=== PATIENT | male | born 1975 | race Caucasian/White ===

== ENCOUNTER 2019-02-14 18:51 | Emergency (ER) | payer MEDICAID, OTHER ==
[~2019-02-14] VITALS: Ht 185.4 cm; Wt 127.0 kg
[2019-02-14 19:45] LABS: Urine WBC None Seen /hpf (0 - 3)
[2019-02-14] MEDS ORDERED: ALBUTEROL SULF 2.5 MG/0.5ML(0.5%) NEB SOLN NEB ONE (19:45)
[2019-02-14] MEDS ORDERED: ONDANSETRON HCL 4 MG/2 ML VIAL IV ONE (19:45)
[2019-02-14] MEDS ORDERED: IPRATROPIUM BROM 0.5 MG/2.5ML INH SOL NEB ONE (19:45)
[2019-02-14] MEDS ORDERED: MORPHINE SULFATE 4 MG/ML SYR/VIAL IV ONE (19:45)
[2019-02-14] MEDS ORDERED: methylPREDNISolone SOD SUCC 125 MG/2 ML VL IV ONE (19:45)
[2019-02-14] MEDS ORDERED: SODIUM CHLORIDE 0.9% 1,000 ML IV ONE (19:45)
[2019-02-14 20:11] LABS: Urine Bacteria NONE SEEN /hpf (None Seen); Urine Blood Negative /uL (Negative); Urine Specific Gravity 1.003 (1.001-1.035)
[2019-02-14 21:03] LABS: Basophils # (auto) 0.1 uL; Eosinophils # (auto) 0 uL; Eosinophils % (auto) 0.7 % (0.0-7.0); Lymphocytes # (auto) 1.8 uL; Monocytes # (auto) 0.5 uL; Neutrophils # (auto) 3.8 uL; Neutrophils % (auto) 61.4 % (37.0-80.0); White Blood Cell 6.2 10^3/uL (4.4-10.8)
[2019-02-14 21:05] LABS: Hematocrit 46.5 % (41.0-53.0); Hemoglobin 16.2 g/dL (13.5-17.5); Lymphocytes % (auto) 29.5 % (10.0-50.0); Mean Corpuscular Hemoglobin 36.3 pg (28.0-32.0); Mean Corpuscular Hgb Conc. 34.8 g/dL (32.0-36.0); Mean Corpuscular Volume 104.1 fL (80.0-100.0); Monocytes % (auto) 7.4 % (0.0-12.0); Nucleated Red Blood Cells % 0.2 %; Platelet Count (auto) 220 10^3/uL (140-450); Red Blood Cells 4.47 10^6/uL (4.5-5.90); Red Cell Distribution Width 13.5 % (11.8-14.3)
[2019-02-14 21:19] LABS: Chloride 106 mmol/L (98-107); Potassium 3.7 mmol/L (3.5-5.1); Sodium 141 mmol/L (136-145)
[2019-02-14 21:21] LABS: INR 1.1 (0.9-1.15); Partial Thromboplastin Time 30.9 sec (23.78-33.04); Prothrombin Time 11.7 sec (9.27-12.13)
[2019-02-14 21:22] LABS: Albumin 3.9 g/dL (3.4-5.0); Anion Gap 12 (5-15); Blood Urea Nitrogen 6 mg/dL (7-18); Carbon Dioxide 23 mmol/L (21-32); Glucose 110 mg/dL (74-106); Magnesium 2.3 mg/dL (1.6-2.6)
[2019-02-14 21:25] LABS: Alanine Aminotransferase 45 U/L (16-61); Aspartate Aminotransferase 61 U/L (15-37); GFR African American 167 mL/min; GFR Non-African American 138 mL/min
[2019-02-14 21:28] LABS: Alkaline Phosphatase 98 U/L (45-117); Bilirubin, Total 0.4 mg/dL (0.2-1.0); Total Protein 7.9 g/dL (6.4-8.2)
[2019-02-14 22:30] VITALS: BP 127/81
== END 2019-02-14 22:33 | disposition home or self-care (01) ==
LOC: EDBD 18:51 → ER 18:51
DX: J45.901 Unspecified asthma with (acute) exacerbation (principal); F10.20 Alcohol dependence, uncomplicated; F17.210 Nicotine dependence, cigarettes, uncomplicated; Y90.9 Presence of alcohol in blood, level not specified
CPT/HCPCS: 36415; 71045; 80053; 81001; 83735; 84484; 85025; 85379; 85610; 85730; 94640; 96374; 96375; 99284; J2270; J2405; J2930; J7030; J7611; J7644

== ENCOUNTER → 2019-08-17 | Emergency (ER) | payer MEDICAID, OTHER ==
[~2019-08-17] VITALS: Ht 182.9 cm; Wt 91.6 kg
[2019-08-17 16:15] VITALS: BP 133/93
[2019-08-17 17:56] LABS: INR 1.03 (0.9-1.15); Partial Thromboplastin Time 28.2 sec (23.64-32.05)
[2019-08-17 17:59] LABS: Albumin 3.7 g/dL (3.4-5.0); Calcium 8.3 mg/dL (8.5-10.1); Potassium 3.7 mmol/L (3.5-5.1)
[2019-08-17 18:03] LABS: BUN/Creatinine Ratio 9.5; Bilirubin, Total 0.4 mg/dL (0.2-1.0); Total Protein 7.5 g/dL (6.4-8.2)
[2019-08-17 18:20] LABS: Basophils # (auto) 0 uL; Eosinophils # (auto) 0 uL
[2019-08-17 18:22] LABS: Basophils % (auto) 0.5 % (0.0-2.0); Eosinophils % (auto) 0.6 % (0.0-7.0); Hematocrit 50.3 % (41.0-53.0); Lymphocytes # (auto) 1.8 uL; Mean Corpuscular Hemoglobin 34.3 pg (28.0-32.0); Mean Corpuscular Hgb Conc. 33.7 g/dL (32.0-36.0); Mean Corpuscular Volume 101.7 fL (80.0-100.0); Monocytes # (auto) 0.7 uL; Monocytes % (auto) 10.6 % (0.0-12.0); Neutrophils # (auto) 4.3 uL; Neutrophils % (auto) 62.3 % (37.0-80.0); Nucleated Red Blood Cells % 0.2 %; Platelet Count (auto) 203 10^3/uL (140-450); Red Blood Cells 4.95 10^6/uL (4.5-5.90); Red Cell Distribution Width 13.9 % (11.8-14.3); White Blood Cell 6.8 10^3/uL (4.4-10.8)
== END | disposition left against medical advice (07) ==
LOC: ER 15:51
DX: R10.11 Right upper quadrant pain (principal); R11.10 Vomiting, unspecified; Z53.21 Procedure and treatment not carried out due to patient leaving prior to being seen by health care provider
CPT/HCPCS: 36415; 80053; 82150; 83690; 85025; 85610; 85730

== ENCOUNTER 2019-10-07 08:50 | Inpatient (IN) | payer MEDICAID ==
[~2019-10-07] VITALS: Ht 182.9 cm; Wt 94.3 kg
[2019-10-07 09:35] LABS: Hematocrit 35.5 % (41.0-53.0); Hemoglobin 12.5 g/dL (13.5-17.5); Mean Corpuscular Hemoglobin 36.6 pg (28.0-32.0); Platelet Count (auto) 156 10^3/uL (140-450); Red Blood Cells 3.42 10^6/uL (4.5-5.90)
[2019-10-07 09:36] LABS: Mean Corpuscular Hgb Conc. 35.2 g/dL (32.0-36.0); Red Cell Distribution Width 18.3 % (11.8-14.3); White Blood Cell 7.3 10^3/uL (4.4-10.8)
[2019-10-07 09:42] LABS: Basophils % (manual) 0 (0.0-2.0); Blast Cells 0; Eosinophils % (manual) 0 (0-7); Metamyelocytes % 0; Myelocytes % 0; Promyelocytes % 0; Reactive Lymphocytes 0
[2019-10-07 09:51] LABS: Albumin 2.6 g/dL (3.4-5.0); Anion Gap 7 (5-15); Blood Urea Nitrogen 10 mg/dL (7-18); Calcium 7.3 mg/dL (8.5-10.1); Carbon Dioxide 25 mmol/L (21-32); Chloride 104 mmol/L (98-107); Glucose 91 mg/dL (74-106); Potassium 3.9 mmol/L (3.5-5.1); Sodium 136 mmol/L (136-145)
[2019-10-07 09:57] LABS: Alanine Aminotransferase 120 U/L (16-61); Alkaline Phosphatase 370 U/L (45-117); Aspartate Aminotransferase 336 U/L (15-37); BUN/Creatinine Ratio 10.3; Bilirubin, Total 4.5 mg/dL (0.2-1.0); GFR African American 109 mL/min; GFR Non-African American 90 mL/min; Total Protein 6.7 g/dL (6.4-8.2)
[2019-10-07] MEDS ORDERED: ONDANSETRON HCL 4 MG/2 ML VIAL ONE (10:01)
[2019-10-07] MEDS ORDERED: ONDANSETRON HCL 4 MG/2 ML VIAL IV ONE (10:15)
[2019-10-07] MEDS ORDERED: chlordiazePOXIDE HCL 5 MG CAP PO ONE (10:45)
[2019-10-07] MEDS ORDERED: PANTOPRAZOLE 40 MG/10 ML VIAL INJ IV ONE (11:30)
[2019-10-07] MEDS ORDERED: THIAMINE 100mg/ml INJ (200mg/2ml VIAL) IV ONE (11:30)
[2019-10-07] MEDS ORDERED: cefTRIAXone 1GM/50ML D5W 50 ML IV ONE (11:30)
[2019-10-07] MEDS ORDERED: NITROGLYCERIN 0.4 MG SL TAB SL PRN (11:30)
[2019-10-07] MEDS ORDERED: chlordiazePOXIDE HCL 25 MG CAP PO PRN (11:30)
[2019-10-07] MEDS ORDERED: ALBUTEROL SULF 2.5 MG/0.5ML(0.5%) NEB SOLN NEB PRN ×2 (11:30→12:30)
[2019-10-07] MEDS ORDERED: MORPHINE SULF INJ 2 MG/ML SYRINGE 1ML IV PRN (11:30)
[2019-10-07] MEDS ORDERED: LORazepam 2MG/ML-1ML VIAL IV PRN (11:30)
[2019-10-07] MEDS ORDERED: MORPHINE SULFATE 4 MG/ML SYR/VIAL IV PRN (11:30)
[2019-10-07] MEDS ORDERED: methylPREDNISolone SOD SUCC 125 MG/2 ML VL ONE (11:43)
[2019-10-07 11:44] LABS: Amylase 55 U/L (25-115); Lipase 68 U/L (73-393)
[2019-10-07] MEDS ORDERED: IPRATROPIUM BROM 0.5 MG/2.5ML INH SOL NEB ONE (11:45)
[2019-10-07] MEDS ORDERED: methylPREDNISolone SOD SUCC 125 MG/2 ML VL IV ONE (11:45)
[2019-10-07] MEDS ORDERED: ALBUTEROL SULF 2.5 MG/0.5ML(0.5%) NEB SOLN NEB ONE (11:45)
[2019-10-07 11:58] LABS: Band Neutrophils % (manual) 1; Lymphocytes % (manual) 19 (10.0-50.0); Monocytes % (manual) 5 (0-12)
[2019-10-07] MEDS: chlordiazePOXIDE HCL 25 MG CAP PO SCH ×2 (12:00→17:39)
--- NOTE | 2019-10-07 12:18 | NUR ---
RECEIVED REPORT FROM ELIER NEWMAN IN ER
[2019-10-07] MEDS ORDERED: LACTULOSE 20Gm/30ML SOLN PO PRN (12:30)
[2019-10-07] MEDS: methylPREDNISolone SOD SUCC 40 MG/ML VL IV SCH (12:30)
[2019-10-07 12:38] LABS: Urine WBC None Seen /hpf (0 - 3)
--- NOTE | 2019-10-07 12:38 | NUR ---
Telemetry admit from [facility] admitted to Telemetry unit after SBAR received. Patient oriented to Cecy Mcnally, primary RN, unit, room, bed, and unit policies regarding patient care and visiting hours. Patient now on continuous telemetry monitoring, tele box # 2 and telemetry reading on arrival to unit is SINUS RHYTHM AT 74BPM. Patient placed on bedside oxygen, weighed by bedscale and encouraged to call if they need something. All questions and concerns addressed, patient verbalized understanding. Note: PT IS AWAKE AND ALERT, AMBULATORY, NOTED SCABS ON PT'S ARMS, NECK AND EAR, NO COMPLAINTS OF PAIN AT THIS TIME, WILL CONTINUE TO MONITOR.
[2019-10-07 12:51] LABS: Urine Bacteria NONE SEEN /hpf (None Seen); Urine Blood Negative /uL (Negative); Urine Specific Gravity 1.022 (1.001-1.035)
[2019-10-07 12:59] LABS: INR 1.44 (0.9-1.15)
[2019-10-07 13:00] VITALS: BP 102/64
--- NOTE | 2019-10-07 13:08 | NUR ---
pt seen by Dr. Dodge pt made aware he will be scheduled for EGD tomorrow, pt verbalized understanding.
--- NOTE | 2019-10-07 13:10 | NUR ---
PT SIGNED AMA TO GO OUTSIDE TO SMOKE, PT EDUCATED ON THE RISK OF GOING OUTSIDE TO SMOKE .
[2019-10-07 13:49] VITALS: BP 101/71
[2019-10-07] MEDS: metroNIDAZOLE 500MG/100ML 100 ML IV SCH ×2 (14:05→21:11)
[2019-10-07] MEDS: MORPHINE SULFATE 4 MG/ML SYR/VIAL IV PRN ×2 (16:32→21:11)
[2019-10-07 17:00] VITALS: BP 124/76
[2019-10-07 17:36] LABS: Hematocrit 32.1 % (41.0-53.0); Hemoglobin 11.1 g/dL (13.5-17.5)
[2019-10-07] MEDS: IPRATROPIUM BROM 0.5 MG/2.5ML INH SOL NEB SCH (18:29)
[2019-10-07] MEDS: ALBUTEROL SULF 2.5 MG/0.5ML(0.5%) NEB SOLN NEB SCH (18:29)
--- NOTE | 2019-10-07 19:55 | NUR ---
Ultrasound at Bedside
--- NOTE | 2019-10-07 20:05 | NUR ---
Opening Shift Note Assumed care of patient, awake and alert, oriented x 4, follows direction, clear speech. Patient is on room air with even and unlabored respirations, no S/S of distress or SOB. Patient ambulates with steady gait and turns independently in bed. PIV left hand 20g intact and patent. Bed low locked position with side rails up x 2 and call light within reach. Instructed on POC for NPO after midnight, procedure tomorrow, patient verbalized understanding. Instructed patient to call for assist PRN, will continue to monitor for changes Q1hr and PRN.
[2019-10-07] MEDS: PANTOPRAZOLE 40 MG TAB PO SCH (21:11)
[2019-10-07] MEDS: PROMETHAZINE HCL 25 MG/ML 1ML IV PRN (21:12)
[2019-10-07 22:27] VITALS: BP 107/67
[2019-10-08] MEDS: chlordiazePOXIDE HCL 25 MG CAP PO SCH ×4 (00:03→18:10)
[2019-10-08] MEDS: methylPREDNISolone SOD SUCC 40 MG/ML VL IV SCH ×2 (00:03→12:03)
--- NOTE | 2019-10-08 00:14 | NUR ---
PT REFUSED MED NEB TX AT THIS TIME. PT DENIES ANY RESPIRATORY DISTRESS. SPO2 98% ON RA, HR 65. NO SHORTNESS OF BREATH NOTED. PT AWARE TO HAVE RT PAGED IF NEEDED. WILL CONTINUE WITH NEXT SCHEDULED TX.
[2019-10-08 00:55] LABS: Hemoglobin 10.3 g/dL (13.5-17.5)
[2019-10-08 05:18] VITALS: BP 122/89
[2019-10-08] MEDS: metroNIDAZOLE 500MG/100ML 100 ML IV SCH (05:24)
[2019-10-08] MEDS: ALBUTEROL SULF 2.5 MG/0.5ML(0.5%) NEB SOLN NEB SCH ×5 (05:54→23:43)
[2019-10-08] MEDS: IPRATROPIUM BROM 0.5 MG/2.5ML INH SOL NEB SCH ×5 (05:54→23:43)
[2019-10-08 06:49] LABS: Hematocrit 31.3 % (41.0-53.0); Hemoglobin 10.9 g/dL (13.5-17.5); Platelet Count (auto) 117 10^3/uL (140-450); Red Blood Cells 2.99 10^6/uL (4.5-5.90); Red Cell Distribution Width 18.9 % (11.8-14.3)
[2019-10-08 06:51] LABS: Mean Corpuscular Hemoglobin 36.5 pg (28.0-32.0); Mean Corpuscular Hgb Conc. 34.9 g/dL (32.0-36.0); Mean Corpuscular Volume 104.7 fL (80.0-100.0); White Blood Cell 7.4 10^3/uL (4.4-10.8)
[2019-10-08 06:58] LABS: Basophils % (manual) 0 (0.0-2.0); Blast Cells 0; Eosinophils % (manual) 0 (0-7); Metamyelocytes % 0; Myelocytes % 0; Promyelocytes % 0; Reactive Lymphocytes 0
[2019-10-08 07:01] LABS: Albumin 2.3 g/dL (3.4-5.0); Calcium 7.7 mg/dL (8.5-10.1); Potassium 4.2 mmol/L (3.5-5.1)
[2019-10-08 07:04] LABS: BUN/Creatinine Ratio 9.1; Total Protein 6.1 g/dL (6.4-8.2)
[2019-10-08 07:52] LABS: Band Neutrophils % (manual) 3; Lymphocytes % (manual) 7 (10.0-50.0); Monocytes % (manual) 3 (0-12)
[2019-10-08 08:00] VITALS: BP 117/74
[2019-10-08] MEDS ORDERED: LIDOCAINE VISCOUS 2% 15ML UD ONE (08:12)
[2019-10-08] MEDS ORDERED: SODIUM CHLORIDE LOCK 10 ML ONE (08:12)
[2019-10-08] MEDS ORDERED: diphenhdrAMINE HCL 50 MG/1 ML VL ONE (08:13)
[2019-10-08] MEDS: PANTOPRAZOLE 40 MG TAB PO SCH ×2 (08:56→21:38)
[2019-10-08 09:00] VITALS: BP 117/74
[2019-10-08] MEDS ORDERED: cefTRIAXone 1GM/50ML D5W 50 ML IV SCH (09:00)
[2019-10-08] MEDS: MORPHINE SULFATE 4 MG/ML SYR/VIAL IV PRN ×2 (09:08→20:23)
[2019-10-08] MEDS ORDERED: THIAMINE 100mg/ml INJ (200mg/2ml VIAL) IV SCH (10:00)
[2019-10-08 13:00] VITALS: BP 100/62
--- NOTE | 2019-10-08 13:20 | NUR ---
PT SEEN BY DR. MCCANN PER DR. MCCANN IF EGD RESULT IS NEGATIVE PT CAN GO HOME LATER TODAY.
--- NOTE | 2019-10-08 13:25 | NUR ---
PT TRANSPORTED TO PRE-OP FOR EGD, PT IS AWAKE AND ALERT, PRE-OP CHECKLIST COMPLETED, CONSENTS SIGNED, IV ON LEFT HAND PATENT AND FLUSHING.
[2019-10-08] MEDS: fentaNYL CITRATE 100 MCG/2 ML VL ONE ×2 (13:42→13:46)
[2019-10-08] MEDS: MIDAZOLAM HCL 5 MG/ML-1ML VIAL ONE ×2 (13:42→13:46)
--- NOTE | 2019-10-08 14:29 | NUR ---
received pt from PACU via bed, pt is awake and alert, no signs of distress at this time, will continue to monitor.
--- NOTE | 2019-10-08 14:32 | NUR ---
DR. MCCANN MADE AWARE PT IS BACK IN ROOM FROM EGD.
[2019-10-08] MEDS ORDERED: FOLIC ACID 1 MG, MULTIPLE VITAMIN 10 ML, MAGNESIUM SULF SDV 50% 8 MEQ, THIAMINE INJ 100... INJ ONE ×5 (15:00)
[2019-10-08] MEDS: SOD CHL 0.45% 1,000 ML IV SCH ×2 (16:22→23:00)
[2019-10-08 17:00] VITALS: BP 125/75
--- NOTE | 2019-10-08 18:37 | NUR ---
RT NOTE PT REFUSED TX PT SITTING UP IN BED EATING NO RESP DISTRESS NOTED.
--- NOTE | 2019-10-08 19:30 | NUR ---
Opening Shift Note Assumed care of patient, awake and alert. No S/S of distress/SOB or pain. Instructed on POC and to call for assist PRN, will continue to monitor for changes Q1hr and PRN.
[2019-10-08] MEDS: PROMETHAZINE HCL 25 MG/ML 1ML IV PRN (20:20)
[2019-10-08 23:17] VITALS: BP 120/74
[2019-10-09] MEDS: chlordiazePOXIDE HCL 25 MG CAP PO SCH ×3 (00:16→10:36)
[2019-10-09] MEDS: methylPREDNISolone SOD SUCC 40 MG/ML VL IV SCH (00:16)
[2019-10-09 05:13] VITALS: BP 126/83
[2019-10-09] MEDS: PROMETHAZINE HCL 25 MG/ML 1ML IV PRN ×2 (05:30→11:56)
[2019-10-09] MEDS: MORPHINE SULFATE 4 MG/ML SYR/VIAL IV PRN ×2 (05:30→14:18)
[2019-10-09 05:41] LABS: Hemoglobin 11.7 g/dL (13.5-17.5); Mean Corpuscular Volume 105.4 fL (80.0-100.0)
[2019-10-09 05:47] LABS: Hematocrit 33.4 % (41.0-53.0); Mean Corpuscular Hemoglobin 36.9 pg (28.0-32.0); Platelet Count (auto) 126 10^3/uL (140-450); Red Blood Cells 3.16 10^6/uL (4.5-5.90); White Blood Cell 11.9 10^3/uL (4.4-10.8)
[2019-10-09 05:58] LABS: Basophils % (manual) 0 (0.0-2.0); Blast Cells 0; Eosinophils % (manual) 0 (0-7); Metamyelocytes % 0; Monocytes % (manual) 0 (0-12); Myelocytes % 0; Promyelocytes % 0; Reactive Lymphocytes 0
[2019-10-09] MEDS: IPRATROPIUM BROM 0.5 MG/2.5ML INH SOL NEB SCH ×2 (06:00→11:17)
[2019-10-09] MEDS: ALBUTEROL SULF 2.5 MG/0.5ML(0.5%) NEB SOLN NEB SCH ×2 (06:00→11:17)
[2019-10-09 06:06] LABS: Potassium 4.1 mmol/L (3.5-5.1)
[2019-10-09 06:14] LABS: Albumin 2.4 g/dL (3.4-5.0); BUN/Creatinine Ratio 7.4; Bilirubin, Total 4.3 mg/dL (0.2-1.0); Calcium 8.3 mg/dL (8.5-10.1); Magnesium 2.4 mg/dL (1.6-2.6); Total Protein 6.4 g/dL (6.4-8.2)
--- NOTE | 2019-10-09 06:24 | NUR ---
RT NOTE: WENT TO PTS ROOM TO ADMINISTER BREATHING TX, PT STATED THAT HE WAS DOING FINE AND DID NOT WANT A TX AT THIS TIME. HR 93, RR 16, SPO2 97% ON RA. PT AWARE TO CALL IF HAVING ANY SOB. WILL CONTINUE TO MONITOR PT.
[2019-10-09] MEDS: SOD CHL 0.45% 1,000 ML IV SCH (06:39)
[2019-10-09 06:56] LABS: Band Neutrophils % (manual) 5; Lymphocytes % (manual) 3 (10.0-50.0)
--- NOTE | 2019-10-09 07:45 | NUR ---
ASSUMED CARE OF PT SITTING UP RIGHT IN BED. DENIES ANY DISCOMFORT. LUNG SOUNDS CLEAR ACCEPT RT LOWER LOBE WHEEZING WHICH IMPROVED SOME AFTER INSTRUCTED FORCEFUL COUGH BUT STILL PRESENT. RE-TAPED PATENT BENIGN IV SITE.
[2019-10-09 09:00] VITALS: BP 115/71
[2019-10-09] MEDS: PANTOPRAZOLE 40 MG TAB PO SCH (10:36)
--- NOTE | 2019-10-09 10:47 | NUR ---
PT RESTING IN BED ACCOMPANIED BY . C/O FREQUENT HAND AND LEG CRAMPING. APPEARS JITTERY. TALKED ABOUT LIFESTYLE CHANGES. TEACHING ABOUT WHAT JAUNDICE IS AND WHAT FUNCTIONS THE LIVER DOES. EXPLAINED HOW MESSAGING ARCHITECT IS EFFECTED BY ETOH USE. EXPLAINED MEDICATIONS INCLUDING LITHIUM. C/O NAUSEA. REQUESTS MEDICATION FOR.
--- NOTE | 2019-10-09 11:17 | NUR ---
RT NOTE: WENT TO PTS ROOM TO ADMINISTER BREATHING TX, PT STATED THAT HE WAS DOING FINE AND DID NOT WANT A TX AT THIS TIME. HR 117, RR 16, SPO2 98% ON RA. PT AWARE TO CALL IF HAVING ANY SOB. WILL CONTINUE TO MONITOR PT.
[2019-10-09] MEDS ORDERED: FOLIC ACID 1 MG, MULTIPLE VITAMIN 10 ML, MAGNESIUM SULF SDV 50% 8 MEQ, THIAMINE INJ 100... INJ SCH ×5 (12:00)
[2019-10-09 13:00] VITALS: BP 111/72
[2019-10-09 13:56] VITALS: BP 115/71
--- NOTE | 2019-10-09 14:33 | NUR ---
MEDICATED FOR PAIN TO LOWER ABDOMINAL AREA. DC INSTRUCTIONS PREPARED AND REVIEWED. REMAINS AT BEDSIDE PRESENTS SUPPORTIVE. PT RESPONDS POSITIVELY AND SHOWS POSITIVE FAMILY DYNAMICS. IV DC'D CANNULA INTACT. TELE MONITOR REMOVED AND SENT TO ICU. ID BAND REMOVED. PREPARED FOR DC HOME.
== END 2019-10-09 15:13 | disposition home or self-care (01) | DRG 241 ==
LOC: ER 08:56 → TELE 08:57 → TELE-EAST 13:10
PROVIDERS: ADMIT Internal Medicine; ATTEND Internal Medicine
PROC: 0DB68ZX Excision of Stomach, Via Natural or Artificial Opening Endoscopic, Diagnostic (ICD-10-PCS; principal; 2019-10-08 13:38)
DX: K29.70 Gastritis, unspecified, without bleeding (principal); E44.0 Moderate protein-calorie malnutrition; K70.30 Alcoholic cirrhosis of liver without ascites; K70.10 Alcoholic hepatitis without ascites; J44.1 Chronic obstructive pulmonary disease with (acute) exacerbation; R16.0 Hepatomegaly, not elsewhere classified; K29.80 Duodenitis without bleeding; K76.0 Fatty (change of) liver, not elsewhere classified; F17.210 Nicotine dependence, cigarettes, uncomplicated; E78.5 Hyperlipidemia, unspecified; F10.239 Alcohol dependence with withdrawal, unspecified; J44.9 Chronic obstructive pulmonary disease, unspecified; Z71.41 Alcohol abuse counseling and surveillance of alcoholic
CPT/HCPCS: 36415; 71046; 74176; 76705; 80053; 81001; 82105; 82150; 82270; 82378; 83036; 83690; 83735; 84484; 85007; 85014; 85018; 85027; 85045; 85610; 85652; 87070; 87077; 87186; 87205; 93005; 94640; 96365; 96375; C9113; G0378; J0696; J2250; J2405; J3490

== ENCOUNTER 2022-07-21 05:44 | Emergency (ER) | payer MEDICAID ==
[~2022-07-21] VITALS: Ht 188 cm; Wt 122.7 kg
[~2022-07-21 05:44] MED LIST: FOLI1TAB6 PO; GAB100C PO; MECL25TA18 PO; PANT40T PO; THIA100T10 PO
[2022-07-21] MEDS ORDERED: MORPHINE SULFATE INJ 2 MG/ml SYRG IV ONE (06:45)
[2022-07-21] MEDS ORDERED: ONDANSETRON HCL 4 MG/2 ML VIAL IV ONE (06:45)
[2022-07-21] MEDS ORDERED: THIAMINE 100mg/ml INJ (200mg/2ml VIAL) IV ONE (07:00)
[2022-07-21] MEDS ORDERED: SODIUM CHLORIDE 0.9% 1,000 ML IV ONE ×2 (07:00)
[2022-07-21 07:58] LABS: Basophils # (auto) 0 10 ^3/uL (0-0.2); Basophils % (auto) 0.5 % (0.0-2.0); Eosinophils # (auto) 0 10 ^3/uL (0-0.8); Eosinophils % (auto) 0.4 % (0.0-7.0); Hematocrit 47.5 % (41.0-53.0); Hemoglobin 16.3 g/dL (13.5-17.5); Lymphocytes # (auto) 0.7 10 ^3/uL (0.4-5.4); Lymphocytes % (auto) 10.5 % (10.0-50.0); Mean Corpuscular Hemoglobin 33.9 pg (28.0-32.0); Mean Corpuscular Hgb Conc. 34.3 g/dL (32.0-36.0); Mean Corpuscular Volume 98.9 fL (80.0-100.0); Monocytes # (auto) 0.5 10 ^3/uL (0-1.3); Monocytes % (auto) 8.3 % (0.0-12.0); Neutrophils # (auto) 5.1 10 ^3/uL (1.6-8.6); Neutrophils % (auto) 80.3 % (37.0-80.0); Red Cell Distribution Width 13.7 % (11.8-14.3); White Blood Cell 6.3 10^3/uL (4.4-10.8)
[2022-07-21 08:09] LABS: Potassium 4.5 mmol/L (3.5-5.1)
[2022-07-21 08:16] LABS: Albumin 4.3 g/dL (3.4-5.0); BUN/Creatinine Ratio 13.2; Bilirubin, Total 0.4 mg/dL (0.2-1.0); Calcium 8.5 mg/dL (8.5-10.1); Total Protein 7.9 g/dL (6.4-8.2)
[2022-07-21 10:34] VITALS: BP 151/84
[2022-07-21] MEDS ORDERED: PROCHLORPERAZINE EDISYLATE 5 MG/ML 2ML VIAL IV ONE (10:45)
[2022-07-21] MEDS ORDERED: LORazepam 2MG/ML-1ML VIAL IV ONE (11:30)
[2022-07-21] MEDS ORDERED: CHL10C PO (12:35)
== END 2022-07-21 13:51 | disposition home or self-care (01) ==
LOC: ER 05:44 → EDBD 05:44 → ER 13:51
DX: K70.9 Alcoholic liver disease, unspecified (principal); R16.0 Hepatomegaly, not elsewhere classified; R60.9 Edema, unspecified; J44.9 Chronic obstructive pulmonary disease, unspecified; F17.210 Nicotine dependence, cigarettes, uncomplicated; F12.10 Cannabis abuse, uncomplicated
CPT/HCPCS: 36415; 71045; 74176; 80053; 80320; 83880; 84484; 85025; 93005; 93970; 96361; 96374; 96375; 99285; J0780; J2060; J2270; J2405; J3411; J7030

== ENCOUNTER 2023-05-25 12:43 | Inpatient (IN) | payer MEDICAID ==
[~2023-05-25] VITALS: Ht 182.9 cm; Wt 146.0 kg
[~2023-05-25 12:43] MED LIST changes: +CHL10C PO; +FOLI-119 PO; -FOLI1TAB6 PO; +MECL1TAB32 PO; -MECL25TA18 PO
[2023-05-25 16:21] VITALS: PULSE 96; RESP 20; O2SAT 96
[2023-05-25] MEDS ORDERED: THIAMINE 100mg/ml INJ (200mg/2ml VIAL) IV ONE (16:30)
[2023-05-25] MEDS ORDERED: ALBUTEROL SULF 2.5 MG/0.5ML(0.5%) NEB SOLN HHN ONE (16:30)
[2023-05-25] MEDS ORDERED: MVI in SODIUM CHLORIDE 0.9% 1,010 ML IV ONE (16:30)
[2023-05-25] MEDS ORDERED: MORPHINE SULFATE 4 MG/ML SYR/VIAL IV ONE (16:30)
[2023-05-25] MEDS ORDERED: ONDANSETRON ODT 4 MG TAB PO ONE (16:30)
[2023-05-25] MEDS ORDERED: PANTOPRAZOLE 40 MG/10 ML VIAL INJ IV ONE (16:30)
[2023-05-25] MEDS ORDERED: IPRATROPIUM BROM 0.5 MG/2.5ML INH SOL HHN ONE (16:30)
[2023-05-25] MEDS ORDERED: LIDOCAINE 2% JELLY 11ml (GLYDO) UR ONE (16:45)
[2023-05-25] MEDS ORDERED: ONDANSETRON HCL 4 MG/2 ML VIAL IV ONE ×2 (16:45→18:45)
[2023-05-25] MEDS: MAGNESIUM SULFATE 1GM/100ML 100 ML IV SCH ×2 (16:46→18:20)
[2023-05-25 16:52] LABS: Base Excess 0.9 mmol/L (-2.0-2.0)
[2023-05-25 17:02] LABS: Eosinophils # (auto) 0 10 ^3/uL (0-0.8); White Blood Cell 15.2 10^3/uL (4.4-10.8)
[2023-05-25 17:03] LABS: Basophils # (auto) 0.2 10 ^3/uL (0-0.2); Basophils % (auto) 1.4 % (0.0-2.0); Eosinophils % (auto) 0.2 % (0.0-7.0); Hematocrit 34.6 % (41.0-53.0); Hemoglobin 12.3 g/dL (13.5-17.5); Lymphocytes # (auto) 3.4 10 ^3/uL (0.4-5.4); Lymphocytes % (auto) 22.5 % (10.0-50.0); Mean Corpuscular Hemoglobin 37.6 pg (28.0-32.0); Mean Corpuscular Hgb Conc. 35.6 g/dL (32.0-36.0); Mean Corpuscular Volume 105.7 fL (80.0-100.0); Monocytes # (auto) 0.9 10 ^3/uL (0-1.3); Monocytes % (auto) 6.1 % (0.0-12.0); Neutrophils # (auto) 10.6 10 ^3/uL (1.6-8.6); Neutrophils % (auto) 69.8 % (37.0-80.0); Nucleated Red Blood Cells % 0.1 %; Red Blood Cells 3.27 10^6/uL (4.5-5.90); Red Cell Distribution Width 15.2 % (11.8-14.3)
[2023-05-25 17:20] LABS: Albumin 2.5 g/dL (3.4-5.0); Calcium 7.6 mg/dL (8.5-10.1); INR 1.36 (0.9-1.15); Magnesium 2.1 mg/dL (1.6-2.6); Partial Thromboplastin Time 44.5 SEC (24.5-34.5); Potassium 3.5 mmol/L (3.5-5.1)
[2023-05-25 17:23] LABS: Bilirubin, Total 13.7 mg/dL (0.2-1.0); Total Protein 6.7 g/dL (6.4-8.2)
[2023-05-25] MEDS ORDERED: SODIUM CHL 3% 500 ML IV ONE (17:30)
[2023-05-25 17:31] LABS: Lactic Acid w/Reflex 2.7 mmol/L (0.4-2.0)
[2023-05-25] MEDS: PIPERACILLIN-TAZOB 3.375GM 100 ML IV SCH ×2 (18:21→23:52)
[2023-05-25] MEDS ORDERED: chlordiazePOXIDE HCL 25 MG CAP PO ONE (18:45)
[2023-05-25] MEDS ORDERED: LORazepam 2MG/ML-1ML VIAL IV ONE (18:45)
[2023-05-25] MEDS ORDERED: VANCOMYCIN 1GM/250ML 250 ML IV ONE (18:45)
[2023-05-25 18:48] LABS: Urine Bacteria NONE SEEN /hpf (None Seen); Urine Blood Negative /uL (Negative); Urine Clarity HAZY (Clear); Urine Color Brown (Yellow); Urine Hyaline Cast FEW /lpf (0 - 2); Urine Protein, UAD TRACE (Negative); Urine Specific Gravity 1.022 (1.001-1.035); Urine WBC 1 /hpf (0 - 3)
[2023-05-25 18:52] LABS: Amphetamine Screen, Urine NEGATIVE (NEGATIVE); Barbiturate Scree,Urine NEGATIVE (NEGATIVE); Benzodiazephine Screen, Urine NEGATIVE (NEGATIVE); Cannabinoid Screen, Urine NEGATIVE (NEGATIVE); Cocaine Screen, Urine NEGATIVE (NEGATIVE); Phencyclidine Screen, Urine NEGATIVE (NEGATIVE)
[2023-05-25 18:59] LABS: Opiate Scree,Urine POSITIVE (NEGATIVE)
[2023-05-25 19:25] VITALS: PULSE 98; RESP 18; O2SAT 96
[2023-05-25] MEDS ORDERED: NITROGLYCERIN 0.4 MG SL TAB SL PRN (19:45)
[2023-05-25] MEDS ORDERED: ACETAMINOPHEN 325 MG TAB PO PRN (19:45)
[2023-05-25] MEDS ORDERED: MORPHINE SULFATE INJ 2 MG/ml SYRG IV PRN (19:45)
[2023-05-25 20:23] LABS: Lactic Acid w/Reflex 2.2 mmol/L (0.4-2.0)
[2023-05-25] MEDS ORDERED: VANCOMYCIN PER PHARMACY 0 MG IV SCH (21:15)
[2023-05-25 21:51] LABS: BUN/Creatinine Ratio 8.6 (10.0-20.0); Calcium 7.5 mg/dL (8.5-10.1); Potassium 3.4 mmol/L (3.5-5.1)
[2023-05-25] MEDS ORDERED: VANCOMYCIN 1GM/250ML 250 ML IV SCH (22:00)
[2023-05-25 22:47] LABS: Calcium 7.4 mg/dL (8.5-10.1); Potassium 3.8 mmol/L (3.5-5.1)
[2023-05-25] MEDS: MORPHINE SULFATE INJ 2 MG/ml SYRG IV PRN (23:40)
[2023-05-25] MEDS ORDERED: SODIUM CHL 3% IV ONE (23:45)
[2023-05-26] VITALS (16 sets, daily range): BP systolic 116–141; BP diastolic 64–87; PULSE 84–108; RESP 18–26; O2SAT 90–98
[2023-05-26] MEDS: LORazepam 0.5 MG TAB PO PRN ×4 (00:40→13:12)
[2023-05-26 03:33] LABS: Basophils # (auto) 0.1 10 ^3/uL (0-0.2); Basophils % (auto) 0.4 % (0.0-2.0); Eosinophils # (auto) 0 10 ^3/uL (0-0.8); Eosinophils % (auto) 0.3 % (0.0-7.0); Hematocrit 32.7 % (41.0-53.0); Hemoglobin 11.6 g/dL (13.5-17.5); Lymphocytes % (auto) 13.7 % (10.0-50.0); Mean Corpuscular Hemoglobin 38.1 pg (28.0-32.0); Mean Corpuscular Hgb Conc. 35.6 g/dL (32.0-36.0); Mean Corpuscular Volume 106.9 fL (80.0-100.0); Monocytes # (auto) 1.2 10 ^3/uL (0-1.3); Monocytes % (auto) 8.5 % (0.0-12.0); Neutrophils # (auto) 11.2 10 ^3/uL (1.6-8.6); Neutrophils % (auto) 77.1 % (37.0-80.0); Red Blood Cells 3.05 10^6/uL (4.5-5.90); Red Cell Distribution Width 15.3 % (11.8-14.3); White Blood Cell 14.5 10^3/uL (4.4-10.8)
[2023-05-26 03:41] LABS: Albumin 2.3 g/dL (3.4-5.0); Calcium 7.4 mg/dL (8.5-10.1); Potassium 3.6 mmol/L (3.5-5.1)
[2023-05-26 03:44] LABS: BUN/Creatinine Ratio 10.3 (10.0-20.0); Bilirubin, Total 13.4 mg/dL (0.2-1.0); Total Protein 6.6 g/dL (6.4-8.2)
[2023-05-26] MEDS: IPRATROPIUM BROM 0.5 MG/2.5ML INH SOL NEB PRN ×3 (04:05→11:02)
[2023-05-26] MEDS: ALBUTEROL SULF 2.5 MG/0.5ML(0.5%) NEB SOLN NEB PRN ×3 (04:05→11:02)
[2023-05-26] MEDS: PIPERACILLIN-TAZOB 3.375GM 100 ML IV SCH ×3 (06:16→20:13)
[2023-05-26] MEDS ORDERED: FUROSEMIDE 20 MG/2 ML VIAL IV ONE (09:30)
[2023-05-26] MEDS: PANTOPRAZOLE 40 MG/10 ML VIAL INJ IV SCH (09:35)
[2023-05-26] MEDS: LACTULOSE 20Gm/30ML SOLN PO SCH (09:35)
[2023-05-26] MEDS: POTASSIUM CHL 20MEQ/100ML 100 ML IV SCH ×2 (09:35→11:41)
[2023-05-26 09:59] LABS: BUN/Creatinine Ratio 9.6 (10.0-20.0); Calcium 7.4 mg/dL (8.5-10.1)
[2023-05-26] MEDS ORDERED: SODIUM CHL 3% 500 ML IV SCH (10:00)
[2023-05-26] MEDS ORDERED: ENOXAPARIN SOD 40 MG/0.4 ML SYRINGE SC SCH (10:00)
[2023-05-26 10:13] LABS: Protein, Urine 73.9 mg/dL (0.0-11.9); Urine Protein/Creatinine Ratio 0.54
[2023-05-26] MEDS ORDERED: LORazepam 0.5 MG TAB ONE (10:28)
[2023-05-26] MEDS: VANCOMYCIN 1GM/250ML 250 ML IV SCH ×3 (11:30→23:52)
[2023-05-26 11:51] LABS: Base Excess 3.1 mmol/L (-2.0-2.0)
[2023-05-26] MEDS ORDERED: ALBUTEROL SULF 2.5 MG/0.5ML(0.5%) NEB SOLN NEB SCH (12:00)
[2023-05-26] MEDS ORDERED: IPRATROPIUM BROM 0.5 MG/2.5ML INH SOL NEB SCH (12:00)
[2023-05-26] MEDS ORDERED: FOLIC ACID 1 MG, MULTIPLE VITAMIN 10 ML, MAGNESIUM SULF SDV 50% 8 MEQ, THIAMINE INJ 100... INJ SCH ×5 (12:00)
[2023-05-26] MEDS: FOLIC ACID 1 MG, MULTIPLE VITAMIN 10 ML, MAGNESIUM SULF SDV 50% 8 MEQ, THIAMINE INJ 100... INJ SCH ×10 (12:35→13:34)
[2023-05-26] MEDS ORDERED: IPRATROPIUM BROM 0.5 MG/2.5ML INH SOL NEB PRN (14:30)
[2023-05-26] MEDS ORDERED: ALBUTEROL SULF 2.5 MG/0.5ML(0.5%) NEB SOLN NEB PRN (14:30)
[2023-05-26 14:52] LABS: BUN/Creatinine Ratio 11.4 (10.0-20.0); Calcium 7.6 mg/dL (8.5-10.1); Potassium 4.3 mmol/L (3.5-5.1)
[2023-05-26] MEDS ORDERED: LORazepam 2MG/ML-1ML VIAL IV PRN (16:15)
[2023-05-26] MEDS: IPRATROPIUM BROM 0.5 MG/2.5ML INH SOL NEB SCH ×2 (19:05→22:34)
[2023-05-26] MEDS: ALBUTEROL SULF 2.5 MG/0.5ML(0.5%) NEB SOLN NEB SCH ×2 (19:05→22:34)
[2023-05-26 20:50] LABS: Calcium 7.2 mg/dL (8.5-10.1); Potassium 3.6 mmol/L (3.5-5.1)
[2023-05-26 20:52] LABS: BUN/Creatinine Ratio 12.5 (10.0-20.0)
[2023-05-27] VITALS (9 sets, daily range): BP systolic 114–132; BP diastolic 71–79; PULSE 86–99; RESP 16–22; O2SAT 92–98
[2023-05-27] MEDS: PIPERACILLIN-TAZOB 3.375GM 100 ML IV SCH ×4 (01:23→23:03)
[2023-05-27] MEDS: IPRATROPIUM BROM 0.5 MG/2.5ML INH SOL NEB SCH ×6 (01:56→22:24)
[2023-05-27] MEDS: ALBUTEROL SULF 2.5 MG/0.5ML(0.5%) NEB SOLN NEB SCH ×6 (01:56→22:24)
[2023-05-27 03:44] LABS: BUN/Creatinine Ratio 15.5 (10.0-20.0); Calcium 7.5 mg/dL (8.5-10.1); Potassium 3.6 mmol/L (3.5-5.1)
[2023-05-27 06:39] LABS: Calcium 7.5 mg/dL (8.5-10.1); Potassium 3.7 mmol/L (3.5-5.1)
[2023-05-27 06:43] LABS: BUN/Creatinine Ratio 12.2 (10.0-20.0)
[2023-05-27 06:50] LABS: Hematocrit 30.7 % (41.0-53.0); Mean Corpuscular Hemoglobin 38.1 pg (28.0-32.0); Mean Corpuscular Hgb Conc. 35.8 g/dL (32.0-36.0); Mean Corpuscular Volume 106.4 fL (80.0-100.0); Red Blood Cells 2.89 10^6/uL (4.5-5.90); Red Cell Distribution Width 15.6 % (11.8-14.3); White Blood Cell 12.3 10^3/uL (4.4-10.8)
[2023-05-27 06:56] LABS: Basophils % (manual) 0 (0.0-2.0); Blast Cells 0; Eosinophils % (manual) 0 (0-7); Metamyelocytes % 0; Myelocytes % 0; Promyelocytes % 0; Reactive Lymphocytes 0
[2023-05-27] MEDS: VANCOMYCIN 1GM/250ML 250 ML IV SCH ×2 (07:56→18:00)
[2023-05-27 08:45] LABS: Band Neutrophils % (manual) 15; Monocytes % (manual) 5 (0-12)
[2023-05-27 08:46] LABS: Lymphocytes % (manual) 6 (10.0-50.0); Macrocytosis Moderate; Platelet Estimate Decreased; Stomatocytes Few
[2023-05-27] MEDS ORDERED: FUROSEMIDE 40 MG/4 ML VIAL IV ONE ×2 (09:15→18:00)
[2023-05-27] MEDS: PANTOPRAZOLE 40 MG/10 ML VIAL INJ IV SCH (10:05)
[2023-05-27] MEDS: POTASSIUM CHL 20MEQ/100ML 100 ML IV SCH ×4 (10:06→19:49)
[2023-05-27 10:28] LABS: Calcium 7.7 mg/dL (8.5-10.1); Potassium 3.8 mmol/L (3.5-5.1)
[2023-05-27 10:30] LABS: BUN/Creatinine Ratio 16.4 (10.0-20.0)
[2023-05-27] MEDS: LACTULOSE 20Gm/30ML SOLN PO SCH (12:03)
[2023-05-27] MEDS: FOLIC ACID 1 MG, MULTIPLE VITAMIN 10 ML, MAGNESIUM SULF SDV 50% 8 MEQ, THIAMINE INJ 100... INJ SCH ×5 (13:58)
[2023-05-27] MEDS: MORPHINE SULFATE INJ 2 MG/ml SYRG IV PRN ×2 (13:59→18:48)
[2023-05-27 14:21] LABS: BUN/Creatinine Ratio 13.3 (10.0-20.0); Calcium 7.7 mg/dL (8.5-10.1)
[2023-05-27 19:17] LABS: BUN/Creatinine Ratio 14.6 (10.0-20.0); Calcium 7.2 mg/dL (8.5-10.1); Potassium 3.9 mmol/L (3.5-5.1)
[2023-05-27 22:42] LABS: Calcium 7.2 mg/dL (8.5-10.1); Potassium 4.5 mmol/L (3.5-5.1)
[2023-05-27 22:46] LABS: BUN/Creatinine Ratio 16.5 (10.0-20.0)
[2023-05-28] VITALS (20 sets, daily range): BP systolic 95–119; BP diastolic 47–73; PULSE 88–109; RESP 15–22; TEMP 98–98.1; O2SAT 88–100
[2023-05-28] MEDS: IPRATROPIUM BROM 0.5 MG/2.5ML INH SOL NEB SCH ×6 (02:21→22:25)
[2023-05-28] MEDS: ALBUTEROL SULF 2.5 MG/0.5ML(0.5%) NEB SOLN NEB SCH ×6 (02:21→22:25)
[2023-05-28] MEDS: MORPHINE SULFATE INJ 2 MG/ml SYRG IV PRN ×2 (02:32→08:37)
[2023-05-28] MEDS: PIPERACILLIN-TAZOB 3.375GM 100 ML IV SCH ×3 (04:50→18:36)
[2023-05-28 05:44] LABS: Phosphorus 1.9 mg/dL (2.5-4.90)
[2023-05-28 05:51] LABS: Hemoglobin 11.1 g/dL (13.5-17.5)
[2023-05-28 05:53] LABS: Hematocrit 31.2 % (41.0-53.0); Mean Corpuscular Hemoglobin 38.1 pg (28.0-32.0); Mean Corpuscular Hgb Conc. 35.4 g/dL (32.0-36.0); Mean Corpuscular Volume 107.5 fL (80.0-100.0); Red Cell Distribution Width 15.8 % (11.8-14.3); White Blood Cell 12.5 10^3/uL (4.4-10.8)
[2023-05-28 05:58] LABS: Basophils % (manual) 0 (0.0-2.0); Blast Cells 0; Metamyelocytes % 0; Myelocytes % 0; Promyelocytes % 0; Reactive Lymphocytes 0
[2023-05-28] MEDS: VANCOMYCIN 1GM/250ML 250 ML IV SCH ×2 (06:05→18:23)
[2023-05-28 08:27] LABS: Band Neutrophils % (manual) 11; Eosinophils % (manual) 1 (0-7); Lymphocytes % (manual) 1 (10.0-50.0); Macrocytosis Moderate; Monocytes % (manual) 10 (0-12)
[2023-05-28 08:28] LABS: Platelet Estimate Decreased
[2023-05-28] MEDS: LACTULOSE 20Gm/30ML SOLN PO SCH (08:34)
[2023-05-28] MEDS: PANTOPRAZOLE 40 MG/10 ML VIAL INJ IV SCH (08:34)
[2023-05-28] MEDS ORDERED: SODIUM PHOSPHATES 40 MEQ in D5W 5% 250 ML IV ONE (09:30)
[2023-05-28] MEDS ORDERED: BUMETANIDE 2.5mg/10ml (0.25 mg/ml) INJ IV ONE (10:45)
[2023-05-28] MEDS: FOLIC ACID 1 MG, MULTIPLE VITAMIN 10 ML, MAGNESIUM SULF SDV 50% 8 MEQ, THIAMINE INJ 100... INJ SCH ×5 (13:05)
[2023-05-28] MEDS: BUMETANIDE 1mg/4ml VIAL (0.25mg/ml) IV SCH (18:23)
[2023-05-29] VITALS (38 sets, daily range): BP systolic 96–129; BP diastolic 46–92; PULSE 73–118; RESP 13–22; TEMP 97.5–98.8; O2SAT 89–100
[2023-05-29] MEDS: PIPERACILLIN-TAZOB 3.375GM 100 ML IV SCH ×4 (01:00→18:48)
[2023-05-29] MEDS: MORPHINE SULFATE INJ 2 MG/ml SYRG IV PRN ×4 (01:02→21:22)
[2023-05-29] MEDS: IPRATROPIUM BROM 0.5 MG/2.5ML INH SOL NEB SCH ×6 (01:49→22:41)
[2023-05-29] MEDS: ALBUTEROL SULF 2.5 MG/0.5ML(0.5%) NEB SOLN NEB SCH ×6 (01:49→22:41)
[2023-05-29] MEDS: BUMETANIDE 1mg/4ml VIAL (0.25mg/ml) IV SCH ×2 (05:13→17:54)
[2023-05-29 05:26] LABS: Potassium 3.5 mmol/L (3.5-5.1)
[2023-05-29] MEDS: ONDANSETRON HCL 4 MG/2 ML VIAL IV PRN ×2 (05:27→10:23)
[2023-05-29 05:33] LABS: Albumin 1.9 g/dL (3.4-5.0); BUN/Creatinine Ratio 16.1 (10.0-20.0); Bilirubin, Total 18.8 mg/dL (0.2-1.0); Calcium 7.4 mg/dL (8.5-10.1); Total Protein 5.5 g/dL (6.4-8.2)
[2023-05-29 05:39] LABS: Hematocrit 31.4 % (41.0-53.0); Mean Corpuscular Hemoglobin 37.9 pg (28.0-32.0); Mean Corpuscular Hgb Conc. 34.9 g/dL (32.0-36.0); Mean Corpuscular Volume 108.5 fL (80.0-100.0); Red Blood Cells 2.89 10^6/uL (4.5-5.90); Red Cell Distribution Width 16.5 % (11.8-14.3); White Blood Cell 12.9 10^3/uL (4.4-10.8)
[2023-05-29] MEDS: VANCOMYCIN 1GM/250ML 250 ML IV SCH ×2 (05:49→17:30)
[2023-05-29 06:15] LABS: Basophils % (manual) 0 (0.0-2.0); Blast Cells 0; Eosinophils % (manual) 0 (0-7); Metamyelocytes % 0; Myelocytes % 0; Promyelocytes % 0; Reactive Lymphocytes 0
[2023-05-29 08:13] LABS: Band Neutrophils % (manual) 13; Lymphocytes % (manual) 11 (10.0-50.0); Monocytes % (manual) 7 (0-12)
[2023-05-29 08:14] LABS: Anisocytosis Slight; Macrocytosis Moderate; Platelet Estimate Decreased
[2023-05-29] MEDS ORDERED: POTASSIUM PHOSPHATE 26.4 MEQ in SODIUM CHL 0.9% 100 ML IV ONE (09:45)
[2023-05-29] MEDS: LACTULOSE 20Gm/30ML SOLN PO SCH (10:00)
[2023-05-29] MEDS: POTASSIUM EFFERVESENT TAB 25 MEQ PO SCH (10:01)
[2023-05-29] MEDS: PANTOPRAZOLE 40 MG/10 ML VIAL INJ IV SCH (10:01)
[2023-05-29] MEDS: FOLIC ACID 1 MG, MULTIPLE VITAMIN 10 ML, MAGNESIUM SULF SDV 50% 8 MEQ, THIAMINE INJ 100... INJ SCH ×5 (13:05)
[2023-05-29] MEDS ORDERED: GABA-1250 PO (13:38)
[2023-05-29] MEDS ORDERED: FURO1TAB31 PO (13:39)
[2023-05-29] MEDS ORDERED: SPIR50TA2 PO (13:39)
[2023-05-29] MEDS ORDERED: POTASSIUM EFFERVESENT TAB 25 MEQ PO ONE (18:00)
[2023-05-30] VITALS (35 sets, daily range): BP systolic 92–128; BP diastolic 45–93; PULSE 84–115; RESP 12–39; TEMP 97.6–98.1; O2SAT 90–100
[2023-05-30] MEDS: MORPHINE SULFATE INJ 2 MG/ml SYRG IV PRN ×3 (01:44→19:31)
[2023-05-30] MEDS: PIPERACILLIN-TAZOB 3.375GM 100 ML IV SCH ×4 (02:03→18:47)
[2023-05-30] MEDS: IPRATROPIUM BROM 0.5 MG/2.5ML INH SOL NEB SCH ×5 (02:21→22:25)
[2023-05-30] MEDS: ALBUTEROL SULF 2.5 MG/0.5ML(0.5%) NEB SOLN NEB SCH ×5 (02:21→22:25)
[2023-05-30 05:17] LABS: Potassium 3.6 mmol/L (3.5-5.1)
[2023-05-30] MEDS: BUMETANIDE 1mg/4ml VIAL (0.25mg/ml) IV SCH ×2 (05:21→16:34)
[2023-05-30 05:25] LABS: Albumin 1.9 g/dL (3.4-5.0); BUN/Creatinine Ratio 15.5 (10.0-20.0); Bilirubin, Total 18.6 mg/dL (0.2-1.0); Calcium 7.5 mg/dL (8.5-10.1)
[2023-05-30] MEDS: VANCOMYCIN 1GM/250ML 250 ML IV SCH ×2 (06:00→16:34)
[2023-05-30 06:12] LABS: Hemoglobin 10.8 g/dL (13.5-17.5); Red Cell Distribution Width 16.5 % (11.8-14.3)
[2023-05-30 06:14] LABS: Hematocrit 30.7 % (41.0-53.0); Mean Corpuscular Hemoglobin 38.6 pg (28.0-32.0); Mean Corpuscular Hgb Conc. 35.3 g/dL (32.0-36.0); Mean Corpuscular Volume 109.2 fL (80.0-100.0); Red Blood Cells 2.81 10^6/uL (4.5-5.90); White Blood Cell 12.1 10^3/uL (4.4-10.8)
[2023-05-30 06:40] LABS: Basophils % (manual) 0 (0.0-2.0); Blast Cells 0; Eosinophils % (manual) 0 (0-7); Metamyelocytes % 0; Myelocytes % 0; Promyelocytes % 0; Reactive Lymphocytes 0
[2023-05-30] MEDS: PANTOPRAZOLE 40 MG/10 ML VIAL INJ IV SCH (08:06)
[2023-05-30] MEDS: LACTULOSE 20Gm/30ML SOLN PO SCH (08:06)
[2023-05-30] MEDS: POTASSIUM EFFERVESENT TAB 25 MEQ PO SCH (08:07)
[2023-05-30 10:30] LABS: Band Neutrophils % (manual) 17; Lymphocytes % (manual) 6 (10.0-50.0); Monocytes % (manual) 14 (0-12)
[2023-05-30 10:31] LABS: Anisocytosis Slight; Macrocytosis Moderate; Platelet Estimate Decreased
[2023-05-30] MEDS: FOLIC ACID 1 MG, MULTIPLE VITAMIN 10 ML, MAGNESIUM SULF SDV 50% 8 MEQ, THIAMINE INJ 100... INJ SCH ×5 (12:07)
[2023-05-30] MEDS ORDERED: POLYETHYLENE GLYCOL 17 GM PWDR PO ONE (22:00)
[2023-05-31] VITALS (24 sets, daily range): BP systolic 100–139; BP diastolic 67–139; PULSE 80–117; RESP 12–24; TEMP 97.2–98.6; O2SAT 88–100
[2023-05-31] MEDS: PIPERACILLIN-TAZOB 3.375GM 100 ML IV SCH ×4 (00:54→20:51)
[2023-05-31] MEDS: MORPHINE SULFATE INJ 2 MG/ml SYRG IV PRN ×5 (00:55→20:55)
[2023-05-31] MEDS: ALBUTEROL SULF 2.5 MG/0.5ML(0.5%) NEB SOLN NEB SCH ×6 (02:48→22:18)
[2023-05-31] MEDS: IPRATROPIUM BROM 0.5 MG/2.5ML INH SOL NEB SCH ×6 (02:49→22:18)
[2023-05-31] MEDS: BUMETANIDE 1mg/4ml VIAL (0.25mg/ml) IV SCH ×2 (05:50→18:15)
[2023-05-31] MEDS: VANCOMYCIN 1GM/250ML 250 ML IV SCH ×2 (05:50→18:16)
[2023-05-31 05:55] LABS: Basophils # (auto) 0.1 10 ^3/uL (0-0.2); Basophils % (auto) 0.9 % (0.0-2.0); Hemoglobin 10.7 g/dL (13.5-17.5); White Blood Cell 12.9 10^3/uL (4.4-10.8)
[2023-05-31 05:59] LABS: Eosinophils # (auto) 0.1 10 ^3/uL (0-0.8); Eosinophils % (auto) 1.2 % (0.0-7.0); Hematocrit 30.4 % (41.0-53.0); Lymphocytes # (auto) 2.1 10 ^3/uL (0.4-5.4); Lymphocytes % (auto) 16.5 % (10.0-50.0); Mean Corpuscular Hemoglobin 38.4 pg (28.0-32.0); Mean Corpuscular Hgb Conc. 35.2 g/dL (32.0-36.0); Monocytes # (auto) 1.5 10 ^3/uL (0-1.3); Monocytes % (auto) 11.3 % (0.0-12.0); Neutrophils # (auto) 9.1 10 ^3/uL (1.6-8.6); Neutrophils % (auto) 70.1 % (37.0-80.0); Nucleated Red Blood Cells % 0.1 %; Red Blood Cells 2.79 10^6/uL (4.5-5.90)
[2023-05-31 06:13] LABS: Albumin 1.8 g/dL (3.4-5.0); Calcium 7.5 mg/dL (8.5-10.1); Potassium 3.1 mmol/L (3.5-5.1)
[2023-05-31 06:16] LABS: BUN/Creatinine Ratio 21.3 (10.0-20.0); Bilirubin, Total 17.4 mg/dL (0.2-1.0); Total Protein 5.5 g/dL (6.4-8.2)
[2023-05-31] MEDS ORDERED: IPRATROPIUM BROM 0.5 MG/2.5ML INH SOL ONE ×3 (06:57→14:28)
[2023-05-31] MEDS ORDERED: ALBUTEROL SULF 2.5 MG/0.5ML(0.5%) NEB SOLN ONE ×3 (06:57→14:28)
[2023-05-31] MEDS ORDERED: LACTULOSE 20Gm/30ML SOLN PO ONE (08:15)
[2023-05-31] MEDS ORDERED: POTASSIUM EFFERVESENT TAB 25 MEQ GT ONE (08:15)
[2023-05-31] MEDS: PANTOPRAZOLE 40 MG/10 ML VIAL INJ IV SCH (08:37)
[2023-05-31] MEDS: POTASSIUM EFFERVESENT TAB 25 MEQ PO SCH (08:38)
[2023-05-31] MEDS: LACTULOSE 20Gm/30ML SOLN PO SCH (08:38)
[2023-05-31] MEDS: FOLIC ACID 1 MG, MULTIPLE VITAMIN 10 ML, MAGNESIUM SULF SDV 50% 8 MEQ, THIAMINE INJ 100... INJ SCH ×5 (12:41)
[2023-06-01] VITALS (17 sets, daily range): BP systolic 108–121; BP diastolic 64–82; PULSE 96–116; RESP 16–22; TEMP 98–99.7; O2SAT 93–99
[2023-06-01] MEDS: PIPERACILLIN-TAZOB 3.375GM 100 ML IV SCH ×4 (01:48→18:33)
[2023-06-01] MEDS: IPRATROPIUM BROM 0.5 MG/2.5ML INH SOL NEB SCH ×6 (02:01→21:59)
[2023-06-01] MEDS: ALBUTEROL SULF 2.5 MG/0.5ML(0.5%) NEB SOLN NEB SCH ×6 (02:01→21:59)
[2023-06-01] MEDS: MORPHINE SULFATE INJ 2 MG/ml SYRG IV PRN ×3 (03:57→18:41)
[2023-06-01] MEDS: BUMETANIDE 1mg/4ml VIAL (0.25mg/ml) IV SCH (05:13)
[2023-06-01] MEDS: VANCOMYCIN 1GM/250ML 250 ML IV SCH ×2 (05:48→18:33)
[2023-06-01 06:38] LABS: Eosinophils # (auto) 0.1 10 ^3/uL (0-0.8); Hematocrit 29.3 % (41.0-53.0); Red Blood Cells 2.66 10^6/uL (4.5-5.90)
[2023-06-01 06:42] LABS: Basophils # (auto) 0.1 10 ^3/uL (0-0.2); Basophils % (auto) 0.9 % (0.0-2.0); Eosinophils % (auto) 0.4 % (0.0-7.0); Hemoglobin 10.3 g/dL (13.5-17.5); Lymphocytes # (auto) 5.4 10 ^3/uL (0.4-5.4); Lymphocytes % (auto) 43.7 % (10.0-50.0); Mean Corpuscular Hemoglobin 38.6 pg (28.0-32.0); Mean Corpuscular Hgb Conc. 35.1 g/dL (32.0-36.0); Mean Corpuscular Volume 110.1 fL (80.0-100.0); Monocytes % (auto) 8.4 % (0.0-12.0); Neutrophils # (auto) 5.7 10 ^3/uL (1.6-8.6); Neutrophils % (auto) 46.6 % (37.0-80.0); Red Cell Distribution Width 17.4 % (11.8-14.3); White Blood Cell 12.3 10^3/uL (4.4-10.8)
[2023-06-01 06:52] LABS: Potassium 3.1 mmol/L (3.5-5.1)
[2023-06-01 07:03] LABS: Albumin 1.9 g/dL (3.4-5.0); BUN/Creatinine Ratio 16.9 (10.0-20.0); Calcium 7.7 mg/dL (8.5-10.1); Total Protein 5.9 g/dL (6.4-8.2)
[2023-06-01] MEDS ORDERED: POTASSIUM EFFERVESENT TAB 25 MEQ GT ONE (07:30)
[2023-06-01] MEDS ORDERED: LORazepam 2MG/ML-1ML VIAL IV PRN (09:30)
[2023-06-01 09:43] LABS: Anisocytosis Moderate; Macrocytosis Moderate; Platelet Estimate Decreased
[2023-06-01] MEDS: POTASSIUM EFFERVESENT TAB 25 MEQ PO SCH (09:45)
[2023-06-01] MEDS: LACTULOSE 20Gm/30ML SOLN PO SCH (09:45)
[2023-06-01] MEDS: PANTOPRAZOLE 40 MG/10 ML VIAL INJ IV SCH (09:45)
[2023-06-01] MEDS: HYDROcodone-ACET 5/325MG TAB PO PRN (09:46)
[2023-06-01] MEDS: FOLIC ACID 1 MG, MULTIPLE VITAMIN 10 ML, MAGNESIUM SULF SDV 50% 8 MEQ, THIAMINE INJ 100... INJ SCH ×5 (12:10)
[2023-06-01 21:46] LABS: Alcohol, Urine < 3.0 mg/dL (0-10); Amphetamine Screen, Urine NEGATIVE (NEGATIVE); Barbiturate Scree,Urine NEGATIVE (NEGATIVE); Cannabinoid Screen, Urine NEGATIVE (NEGATIVE); Cocaine Screen, Urine NEGATIVE (NEGATIVE)
[2023-06-01 21:54] LABS: Benzodiazephine Screen, Urine POSITIVE (NEGATIVE); Opiate Scree,Urine POSITIVE (NEGATIVE); Phencyclidine Screen, Urine NEGATIVE (NEGATIVE)
[2023-06-02] VITALS (10 sets, daily range): PULSE 75–104; RESP 18–20; O2SAT 96–100
[2023-06-02] MEDS: PIPERACILLIN-TAZOB 3.375GM 100 ML IV SCH ×4 (00:12→19:15)
[2023-06-02] MEDS: HYDROcodone-ACET 5/325MG TAB PO PRN ×3 (01:49→17:56)
[2023-06-02] MEDS: ALBUTEROL SULF 2.5 MG/0.5ML(0.5%) NEB SOLN NEB SCH ×6 (02:00→22:58)
[2023-06-02] MEDS: IPRATROPIUM BROM 0.5 MG/2.5ML INH SOL NEB SCH ×6 (02:00→22:58)
[2023-06-02 07:43] LABS: Eosinophils # (auto) 0.1 10 ^3/uL (0-0.8)
[2023-06-02 07:46] LABS: Basophils # (auto) 0.3 10 ^3/uL (0-0.2); Eosinophils % (auto) 0.9 % (0.0-7.0); Hematocrit 31.4 % (41.0-53.0); Hemoglobin 10.9 g/dL (13.5-17.5); Mean Corpuscular Hemoglobin 38.4 pg (28.0-32.0); Mean Corpuscular Hgb Conc. 34.6 g/dL (32.0-36.0); Monocytes # (auto) 1.4 10 ^3/uL (0-1.3); Monocytes % (auto) 10.6 % (0.0-12.0); Neutrophils # (auto) 9.6 10 ^3/uL (1.6-8.6); Neutrophils % (auto) 71.5 % (37.0-80.0); Red Blood Cells 2.83 10^6/uL (4.5-5.90); Red Cell Distribution Width 17.2 % (11.8-14.3); White Blood Cell 13.4 10^3/uL (4.4-10.8)
[2023-06-02 08:16] LABS: Albumin 1.8 g/dL (3.4-5.0); Calcium 7.6 mg/dL (8.5-10.1); Potassium 3.4 mmol/L (3.5-5.1)
[2023-06-02 08:20] LABS: BUN/Creatinine Ratio 19.7 (10.0-20.0); Bilirubin, Total 14.2 mg/dL (0.2-1.0); Total Protein 6.1 g/dL (6.4-8.2)
[2023-06-02] MEDS: POTASSIUM EFFERVESENT TAB 25 MEQ PO SCH (10:15)
[2023-06-02] MEDS: PANTOPRAZOLE 40 MG/10 ML VIAL INJ IV SCH (10:17)
[2023-06-02] MEDS: BUMETANIDE 1mg/4ml VIAL (0.25mg/ml) IV SCH (10:18)
[2023-06-02] MEDS: LACTULOSE 20Gm/30ML SOLN PO SCH (10:19)
[2023-06-02 11:48] LABS: Anisocytosis Moderate; Macrocytosis Moderate; Platelet Estimate Adequate
[2023-06-02 11:49] LABS: Target Cell FEW
[2023-06-02] MEDS: FOLIC ACID 1 MG, MULTIPLE VITAMIN 10 ML, MAGNESIUM SULF SDV 50% 8 MEQ, THIAMINE INJ 100... INJ SCH ×5 (13:15)
[2023-06-02] MEDS: VANCOMYCIN 1GM/250ML 250 ML IV SCH (17:54)
[2023-06-03] VITALS (19 sets, daily range): BP systolic 104–114; BP diastolic 46–77; PULSE 90–112; RESP 17–24; TEMP 97.9–100.5; O2SAT 20–100
[2023-06-03] MEDS: LORazepam 2MG/ML-1ML VIAL IV PRN ×2 (00:25→20:05)
[2023-06-03] MEDS: VANCOMYCIN 1GM/250ML 250 ML IV SCH ×2 (00:26→08:14)
[2023-06-03] MEDS: PIPERACILLIN-TAZOB 3.375GM 100 ML IV SCH ×2 (01:50→06:49)
[2023-06-03] MEDS: ALBUTEROL SULF 2.5 MG/0.5ML(0.5%) NEB SOLN NEB SCH ×6 (03:00→21:37)
[2023-06-03] MEDS: IPRATROPIUM BROM 0.5 MG/2.5ML INH SOL NEB SCH ×6 (03:00→21:37)
[2023-06-03] MEDS: HYDROcodone-ACET 5/325MG TAB PO PRN ×3 (06:54→22:50)
[2023-06-03 07:06] LABS: Eosinophils # (auto) 0.1 10 ^3/uL (0-0.8); Eosinophils % (auto) 0.4 % (0.0-7.0)
[2023-06-03 07:10] LABS: Basophils # (auto) 0.3 10 ^3/uL (0-0.2); Basophils % (auto) 1.9 % (0.0-2.0); Hematocrit 30.9 % (41.0-53.0); Hemoglobin 10.7 g/dL (13.5-17.5); Lymphocytes # (auto) 4.1 10 ^3/uL (0.4-5.4); Lymphocytes % (auto) 26.1 % (10.0-50.0); Mean Corpuscular Hemoglobin 38.3 pg (28.0-32.0); Mean Corpuscular Hgb Conc. 34.7 g/dL (32.0-36.0); Mean Corpuscular Volume 110.5 fL (80.0-100.0); Monocytes # (auto) 1.2 10 ^3/uL (0-1.3); Monocytes % (auto) 7.8 % (0.0-12.0); Neutrophils # (auto) 10.1 10 ^3/uL (1.6-8.6); Neutrophils % (auto) 63.8 % (37.0-80.0); Nucleated Red Blood Cells % 0.2 %; Red Blood Cells 2.79 10^6/uL (4.5-5.90); Red Cell Distribution Width 16.6 % (11.8-14.3); White Blood Cell 15.8 10^3/uL (4.4-10.8)
[2023-06-03] MEDS: PANTOPRAZOLE 40 MG/10 ML VIAL INJ IV SCH (08:14)
[2023-06-03] MEDS: BUMETANIDE 1mg/4ml VIAL (0.25mg/ml) IV SCH (08:15)
[2023-06-03] MEDS: LACTULOSE 20Gm/30ML SOLN PO SCH (08:15)
[2023-06-03] MEDS: POTASSIUM EFFERVESENT TAB 25 MEQ PO SCH (08:16)
[2023-06-03 09:00] LABS: Platelet Estimate Adequate; Target Cell FEW
[2023-06-03 09:02] LABS: Macrocytosis Moderate; Stomatocytes Moderate
[2023-06-03 09:04] LABS: Anisocytosis Moderate
[2023-06-03] MEDS: FOLIC ACID 1 MG, MULTIPLE VITAMIN 10 ML, MAGNESIUM SULF SDV 50% 8 MEQ, THIAMINE INJ 100... INJ SCH ×5 (13:34)
[2023-06-03] MEDS: CEFEPIME 1GM/ 50ML 50 ML IV SCH ×2 (13:42→21:28)
[2023-06-04] VITALS (9 sets, daily range): BP systolic 105–109; BP diastolic 64–67; PULSE 76–110; RESP 18–22; TEMP 98–98.3; O2SAT 92–100
[2023-06-04] MEDS: IPRATROPIUM BROM 0.5 MG/2.5ML INH SOL NEB SCH ×3 (02:18→10:48)
[2023-06-04] MEDS: ALBUTEROL SULF 2.5 MG/0.5ML(0.5%) NEB SOLN NEB SCH ×3 (02:18→10:48)
[2023-06-04] MEDS: CEFEPIME 1GM/ 50ML 50 ML IV SCH ×2 (06:22→14:00)
[2023-06-04] MEDS: HYDROcodone-ACET 5/325MG TAB PO PRN ×2 (06:50→11:36)
[2023-06-04 06:55] LABS: Hemoglobin 10.6 g/dL (13.5-17.5); White Blood Cell 18.3 10^3/uL (4.4-10.8)
[2023-06-04 06:58] LABS: Hematocrit 30.9 % (41.0-53.0); Mean Corpuscular Hemoglobin 37.7 pg (28.0-32.0); Mean Corpuscular Hgb Conc. 34.4 g/dL (32.0-36.0); Mean Corpuscular Volume 109.8 fL (80.0-100.0); Red Blood Cells 2.82 10^6/uL (4.5-5.90); Red Cell Distribution Width 16.7 % (11.8-14.3)
[2023-06-04 07:15] LABS: Basophils % (manual) 0 (0.0-2.0); Blast Cells 0; Eosinophils % (manual) 0 (0-7); Metamyelocytes % 0; Myelocytes % 0; Promyelocytes % 0; Reactive Lymphocytes 0
[2023-06-04] MEDS: LACTULOSE 20Gm/30ML SOLN PO SCH (08:10)
[2023-06-04] MEDS: POTASSIUM EFFERVESENT TAB 25 MEQ PO SCH (08:11)
[2023-06-04] MEDS: PANTOPRAZOLE 40 MG/10 ML VIAL INJ IV SCH (08:11)
[2023-06-04] MEDS: BUMETANIDE 1mg/4ml VIAL (0.25mg/ml) IV SCH (08:15)
[2023-06-04 10:07] LABS: Band Neutrophils % (manual) 1; Lymphocytes % (manual) 8 (10.0-50.0); Monocytes % (manual) 6 (0-12)
[2023-06-04 10:08] LABS: Platelet Estimate Adequate
[2023-06-04] MEDS: FOLIC ACID 1 MG, MULTIPLE VITAMIN 10 ML, MAGNESIUM SULF SDV 50% 8 MEQ, THIAMINE INJ 100... INJ SCH ×5 (12:00)
[2023-06-05 09:43] LABS: Hepatitis A Total Antibody Negative (Negative)
[2023-06-05 11:27] LABS: Hepatitis B Surface Antibody Negative (Negative)
[2023-06-05 12:42] LABS: Hepatitis B Surface Antigen Negative (Negative)
[2023-06-05 12:44] LABS: Hepatitis B Core Total AB Negative (Negative); Hepatitis C Antibody Negative (Negative)
== END 2023-06-04 14:00 | disposition home or self-care (01) | DRG 720 ==
LOC: EDBD 12:43 → ER 12:43 → EDSEX 12:43 → TELE 19:58 → DOU IN ICU 05-28 18:24 → TELE-WESTW 05-31 11:26
PROVIDERS: ADMIT Internal Medicine; ATTEND Internal Medicine
PROC: 5A0935A Assistance with Respiratory Ventilation, Less than 24 Consecutive Hours, High Flow/Velocity Cannula (ICD-10-PCS; principal; 2023-05-26)
PROC: 05HD33Z Insertion of Infusion Device into Right Cephalic Vein, Percutaneous Approach (ICD-10-PCS; 2023-05-28)
PROC: B54MZZA Ultrasonography of Right Upper Extremity Veins, Guidance (ICD-10-PCS; 2023-05-28)
PROC: 5A09357 Assistance with Respiratory Ventilation, Less than 24 Consecutive Hours, Continuous Positive Airway Pressure (ICD-10-PCS; 2023-05-30)
DX: A41.50 Gram-negative sepsis, unspecified (principal); J96.01 Acute respiratory failure with hypoxia; G92.8 Other toxic encephalopathy; I50.43 Acute on chronic combined systolic (congestive) and diastolic (congestive) heart failure; K70.40 Alcoholic hepatic failure without coma; K76.82 Hepatic encephalopathy; D68.4 Acquired coagulation factor deficiency; D69.59 Other secondary thrombocytopenia; K70.31 Alcoholic cirrhosis of liver with ascites; K70.11 Alcoholic hepatitis with ascites; E87.1 Hypo-osmolality and hyponatremia; L97.929 Non-pressure chronic ulcer of unspecified part of left lower leg with unspecified severity; L03.116 Cellulitis of left lower limb; L03.115 Cellulitis of right lower limb; F10.239 Alcohol dependence with withdrawal, unspecified; J44.9 Chronic obstructive pulmonary disease, unspecified; E66.01 Morbid (severe) obesity due to excess calories; E87.6 Hypokalemia; K76.0 Fatty (change of) liver, not elsewhere classified; F10.229 Alcohol dependence with intoxication, unspecified; E88.09 Other disorders of plasma-protein metabolism, not elsewhere classified; F17.210 Nicotine dependence, cigarettes, uncomplicated; R29.6 Repeated falls; B96.1 Klebsiella pneumoniae [K. pneumoniae] as the cause of diseases classified elsewhere; G47.33 Obstructive sleep apnea (adult) (pediatric); E83.39 Other disorders of phosphorus metabolism; D53.9 Nutritional anemia, unspecified; E87.79 Other fluid overload; Z71.6 Tobacco abuse counseling; Z71.3 Dietary counseling and surveillance
CPT/HCPCS: 36415; 36600; 70450; 71045; 76705; 80048; 80053; 80061; 80202; 80307; 80320; 81001; 82140; 82306; 82550; 82553; 82570; 82805; 82962; 83605; 83690; 83735; 83880; 83935; 84100; 84156; 84295; 84300; 84484; 85007; 85025; 85027; 85610; 85730; 86704; 86706; 86708; 86803; 86850; 86900; 86901; 87040; 87077; 87081; 87086; 87186; 87205; 87340; 93005; 93306; 93970; 94640; 94660; 97110; 97116; 97163; 97530; C9113; G0378; J2405; J2543; J3480; J7060